=== PATIENT | female | born 1965 ===

== ENCOUNTER 2020-10-18 21:09 | Emergency (ER) | payer OTHER ==
[~2020-10-18] VITALS: Ht 172.7 cm; Wt 142.1 kg
--- NOTE | 2020-10-18 21:20 | NUR ---
Patient brought in by [employer], patient is currently being monitored by [employer] and restrainted via handcuffs to the hospital bed.
[2020-10-18 21:39] LABS: BASOPHILS % (AUTO) 0.2 % (0.0-2.0); EOSINOPHILS % (AUTO) 0.1 % (0.0-7.0); HEMATOCRIT 38.6 % (31.2-41.9); HEMOGLOBIN 13.2 g/dL (10.9-14.3); LYMPHOCYTES # (AUTO) 2.3 K/uL (20.0-40.0); LYMPHOCYTES % (AUTO) 53.3 % (20.5-51.5); MEAN CORPUSCULAR HEMOGLOBIN 32.8 uug (24.7-32.8); MEAN CORPUSCULAR HGB CONC 34 g/dL (32.3-35.6); MEAN CORPUSCULAR VOLUME 96.2 fL (75.5-95.3); MONOCYTES # (AUTO) 0.3 K/uL (2.0-10.0); MONOCYTES % (AUTO) 7.6 % (0.0-11.0); NEUTROPHILS # (AUTO) 1.7 K/uL (1.8-8.9); NEUTROPHILS % (AUTO) 38.8 % (38.5-71.5); PLATELET COUNT (AUTO) 241 K/uL (179-408); RED BLOOD CELL COUNT(AUTO) 4.01 MIL/uL (3.63-4.92); WHITE BLOOD COUNT (AUTO) 4.3 K/uL (3.8-11.8)
[2020-10-18 21:47] LABS: CARBON DIOXIDE 27 mmol/L (21-32); CHLORIDE 107 mmol/L (98-107); CREATININE 0.9 mg/dL (0.6-1.3); GLUCOSE 112 mg/dL (74-106); POTASSIUM 4.2 mmol/L (3.5-5.1); UREA NITROGEN, BLOOD 16 mg/dL (7-18)
--- NOTE | 2020-10-18 21:55 | NUR ---
Patient requested to be removed from handcuffs from [employer]. The patient stated she would be cooperative and not attempt to elope from the facility. Handcuffs were removed by [employer]. Patient is resting semi-fowlers on the hospital bed.
[2020-10-18 21:57] LABS: ETHANOL 279 MG/DL (0-0)
--- NOTE | 2020-10-18 22:00 | NUR ---
Patient uncooperative, agitated, and attempted to elope on a 5150 hold from the emergency department. Soft restraints were initiated. Restraint checks will be made every 15 minutes from this point, any adverse events related to that may happen will be noted from this point on.
[2020-10-18 22:01] LABS: ALANINE AMINOTRANSFERASE 27 U/L (14-59); ALKALINE PHOSPHATASE 60 U/L (50-136); ASPARTATE AMINOTRANSFERASE 17 U/L (15-37); BILIRUBIN,DIRECT 0.1 mg/dL (0.0-0.2); BILIRUBIN,TOTAL 0.2 mg/dL (0.2-1.0); TOTAL PROTEIN, SERUM 6.7 g/dL (6.4-8.2)
[2020-10-18 22:06] LABS: ACETAMINOPHEN < 2.0 ug/mL (10-30)
--- NOTE | 2020-10-18 23:00 | NUR ---
Patient on phone attempting to contact and speak with family.
--- NOTE | 2020-10-18 23:00 | NUR ---
Patient is now alert and orientated and cooperative. Patient was removed from restraints, and made more comfortable to rest on the hospital bed.
[2020-10-18] MEDS ORDERED: OXYC5TAB3 PO (23:19)
[2020-10-18] MEDS ORDERED: CYCL5TAB PO (23:19)
[2020-10-18] MEDS ORDERED: VENL37.55 PO (23:19)
[2020-10-18] MEDS ORDERED: ROSU5TAB PO (23:19)
[2020-10-18] MEDS ORDERED: BUPR300T52 PO (23:19)
[2020-10-18] MEDS ORDERED: CELE200C PO (23:19)
[2020-10-18] MEDS ORDERED: NALT50TA PO (23:19)
[2020-10-18] MEDS ORDERED: FAMO40TA71 PO (23:19)
[2020-10-18] MEDS ORDERED: QUET50TA PO (23:19)
[2020-10-18] MEDS ORDERED: HYDR25CA PO (23:19)
[2020-10-18] MEDS ORDERED: ALBU8.5H8 IH (23:19)
[2020-10-18] MEDS ORDERED: ACET-73 PO (23:19)
[2020-10-18] MEDS ORDERED: DICY20TA11 PO (23:19)
[2020-10-18] MEDS ORDERED: TRAZ-182 PO (23:19)
[2020-10-18] MEDS ORDERED: GABA-532 PO (23:19)
[2020-10-18] MEDS ORDERED: DULO20CA PO (23:19)
[2020-10-18] MEDS ORDERED: KETO10TA2 PO (23:19)
[2020-10-18] MEDS ORDERED: FLUT1BLS11 IH (23:19)
--- NOTE | 2020-10-18 23:30 | NUR ---
5150 Hold lifted by MD Lombardi, patient soon to be discharged.
[2020-10-18 23:45] VITALS: BP 110/60
--- NOTE | 2020-10-18 23:45 | NUR ---
Patient discharged to home in stable condition. Written and verbal after care instructions given. Patient verbalizes understanding of instructions. Stressed follow up or return to ER for worsening s/s. Patient ambulates with steady gait, A&Ox4, V/S stable, patient left with all personal belongings.
== END 2020-10-18 23:45 | disposition home or self-care (01) ==
LOC: ER 21:09
DX: F10.129 Alcohol abuse with intoxication, unspecified (principal); Y90.7 Blood alcohol level of 200-239 mg/100 ml; Z91.14 Patient's other noncompliance with medication regimen; R45.851 Suicidal ideations
CPT/HCPCS: 85025; A4663; G0480